=== PATIENT | female | born 1950 ===

== ENCOUNTER → 2021-10-06 11:16 | Outpatient (BNVA) | payer MEDICARE, OTHER, SELFPAY | PROVIDERS: PCP Internal Medicine; Visit Provider Psychiatry & Neurology Neurology | DX: G24.3 Spasmodic torticollis (principal); R68.84 Jaw pain | CPT/HCPCS: 99212 ==

== ENCOUNTER → 2021-11-10 10:48 | Outpatient (BNVA) | payer MEDICARE, OTHER, SELFPAY | PROVIDERS: PCP Internal Medicine; Visit Provider Psychiatry & Neurology Neurology | DX: G24.3 Spasmodic torticollis (principal); R68.84 Jaw pain | CPT/HCPCS: 64616; 99211; J0585 ==

== ENCOUNTER → 2022-02-07 11:19 | Outpatient (BNVA) | payer MEDICARE, OTHER, SELFPAY | PROVIDERS: PCP Internal Medicine; Visit Provider Psychiatry & Neurology Neurology | DX: G24.3 Spasmodic torticollis (principal); R68.84 Jaw pain | CPT/HCPCS: 64616; 99211; J0585 ==